=== PATIENT | male | born 1955 | race Caucasian/White ===

== ENCOUNTER 2018-06-26 06:11 | Day surgery (SDC) | payer MEDICARE, OTHER ==
[~2018-06-26] VITALS: Ht 165.1 cm; Wt 57.2 kg
[~2018-06-26 06:11] MED LIST: AMLO5TAB4 PO; BENA20TA65 PO; CLON-379 PO; CLON0.5T14 PO; CNC30T PO; CYAN500T21 PO; DOCU-159 PO; EPOE10003 SC; FOLI-49 PO; FOLI1CAP PO; GABA100C PO; GLYB5TAB3 PO; LABE100T8 PO; MEGE40TA PO; NEPH PO; NIFE60TA60 PO; NIFE90TA21 PO; OMEG1CAP2 PO; PANT40TA3 PO; PARI2VIA IV; PYRI50TA15 PO; SEVE800T7 PO; SIMV40TA3 PO; TRAV4OP25 BOTH EYES
[2018-06-26 07:12] VITALS: Ht 165.1 cm; Wt 57.2 kg
--- NOTE | 2018-06-26 07:32 | PREAC ---
Date/Time of Note Date/Time of Note DATE: 06/26/18 TIME: 07:30 Anesthesia Eval and Record Evaluation Time Pre-Procedure Interview DATE: 06/26/18 TIME: 07:30 Age 62 Sex male NPO: 8 hrs Preoperative diagnosis dyspepsia Planned procedure EGD Past Medical History Past Medical History: Includes Cardio: HTN, CABG Endo: Diabetes Renal: ESRD on dialysis, HD last: (yesterday) Surgery & Anesthesia Issues No known issue Meds Anticoagulation: No Beta Blake within 24 hr: Yes Reason Beta Blake not given: Pt. not on B-Blake Reported Medications Paricalcitol* (Zemplar*) 2 Mcg/Ml Vial, 1 MCG IV DIRECTED, VIAL 1ST, 2ND, AND 3RD SCHED TRMT 04/07/14 Megestrol Acetate* (Megace*) 40 Mg Tab, 40 MG PO DAILY, TAB 04/07/14 Pantoprazole* (Protonix*) 40 Mg Tablet.dr, 40 MG PO DAILY, TAB 04/07/14 Glyburide* (Glyburide*) 5 Mg Tablet, 5 MG PO QAM, TAB 04/07/14 Gabapentin* (Neurontin*) 100 Mg Capsule, 100 MG PO TID, CAP 04/07/14 Cinacalcet* (Sensipar*) 30 Mg Tab, 30 MG PO DAILY, TAB 04/07/14 Simvastatin (Simvastatin) 40 Mg Tablet, 40 MG PO HS, TAB 04/07/14 Docusate Sodium* (Docusate Sodium*) 100 Mg Capsule, 100 MG PO BID, CAP 04/07/14 Folic Acid* (Folic Acid*) 1 Mg Tablet, 1 MG PO DAILY, TAB 04/07/14 [place]-3 Acid Ethyl Esters (Lovaza) 1 Gm Capsule, 1 GM PO BID, CAP 04/07/14 Clonazepam* (Clonazepam*) 0.5 Mg Tablet, 0.5 MG PO NEEDED, TAB 04/07/14 Sevelamer Carbonate* (Renvela*) 800 Mg Tablet, 0.8 GM PO TID, TAB 04/07/14 Travoprost* (Travatan*) 0.004%-2.5 Ml Opht, 1 DROP BOTH EYES HS, EA 04/07/14 Benazepril Hcl* (Lotensin*) 20 Mg Tablet, 20 MG PO DAILY, TAB 04/07/14 Folic Acid/Vitamin B Comp W-C (Nephrocaps Capsule) 1 Mg Capsule, 1 MG PO DAILY 04/07/14 Nifedipine* (Procardia XL*) 60 Mg/Bottle Tab.osm.24, 60 MG PO DAILY, TAB.SA 04/07/14 Epoetin yosvany* (Epogen* (ESRD)) 10,000 Unit/1 Ml Vial, 15899 UNIT SC NEEDED, VIAL 1ST AND 3RD SCHED TRMT OF WEEK 04/07/14 Clonidine Hcl* (Clonidine Hcl*) 0.1 Mg Tab, 0.1 MG PO DAILY NEEDED, TAB 04/07/14 Pyridoxine Hcl (Vitamin B6) 50 Mg Tab, 50 MG PO DAILY, TAB 04/07/14 Multivit/Ca Carb/B Cmplx/Fa* (Sara-Kathi*) 1 Tab Tab, 1 TAB PO DAILY, TAB 04/07/14 Cyanocobalamin* (Vitamin B-12*) 500 Mcg Tablet.sa, 500 MCG PO DAILY, TAB 04/07/14 Amlodipine Besylate* (Norvasc*) 5 Mg Tablet, 5 MG PO DAILY, TAB 04/07/14 Labetalol Hcl* (Normodyne*) 100 Mg Tablet, 30 MG PO DAILY, TAB 04/07/14 Nifedipine* (Adalat CC*) 90 Mg Tablet.sa, 90 MG PO DAILY, TAB.SA 04/07/14 Meds reviewed: Yes Allergies Coded Allergies: No Known Drug Allergy (Verified Allergy, Mild, 06/26/18) Allergies Reviewed: Yes Labs/Studies Labs Reviewed: Reviewed by anesthesiologist test: N/A Studies: ECG (n/a), CXR (n/a) Pre-procedure Exam Airway: Adequate mouth opening Mallampati: Mallampati I Teeth: Abnormal (partial den ture) Lung: Normal Heart: Normal ASA Physical Status ASA physical status: 3 Emergency: None Planned Anesthetic General/MAC: MAC Planned Pain Management Parenteral pain med Pre-operative Attestations Prior to commencing anesthesia and surgery, the patient was re-evaluated, there was verification of: *The patient's identity *The results of appropriate recent lab work and preoperative vital signs *The above evaluation not changing prior to induction *Anesthetic plan, risk benefits, alternative and complications discussed with patient/family; questions answered; patient/family understands, accepts and wishes to proceed. VANESSA BARNES MD Jun 26, 2018 07:32
[2018-06-26] MEDS ORDERED: PROPOFOL 20 ML ONE (07:43)
[2018-06-26] MEDS ORDERED: FENTAnyl 50 MCG/ML VIAL ONE (07:43)
[2018-06-26] MEDS ORDERED: ciclopirox (07:46)
[2018-06-26] MEDS ORDERED: fenofibrate (07:46)
[2018-06-26] MEDS ORDERED: metoclopramide PO (07:46)
[2018-06-26] MEDS ORDERED: TRAVATAN Z (07:46)
[2018-06-26] MEDS ORDERED: omeprazole PO (07:46)
[2018-06-26] MEDS ORDERED: fish oil PO (07:46)
[2018-06-26 07:51] VITALS: BP 153/66; PULSE 59; RESP 13
[2018-06-26 07:55] VITALS: BP 153/66; PULSE 61; RESP 16
[2018-06-26] MEDS ORDERED: hydrALAzine 20 MG INJ IV PRN (08:00)
[2018-06-26] MEDS ORDERED: ONDANSETRON 4 MG INJ IV PRN (08:00)
[2018-06-26] MEDS ORDERED: LABETALOL HCL 20MG INJ IV PRN (08:00)
[2018-06-26 08:53] VITALS: BP 147/67; RESP 24
--- NOTE | 2018-06-26 09:35 | PAC ---
Date/Time of Note Date/Time of Note DATE: 06/26/18 TIME: 09:35 Post-Anesthesia Notes Post-Anesthesia Note Last documented vital signs Vital Signs Date Temp Pulse Resp B/P (MAP) Pulse Ox O2 O2 Flow FiO2 Time Delivery Rate 06/26/18 97.1 59 24 147/67 96 08:53 (93) 06/26/18 97.1 59 Room Air 07:51 Activity: WNL Respiratory function: WNL Cardiovascular function: WNL Mental status: Baseline Pain reasonably controlled: Yes Hydration appropriate: Yes Nausea/Vomiting absent: No VANESSA BARNES MD Jun 26, 2018 09:35
== END 2018-06-26 09:54 | disposition home or self-care (01) ==
LOC: GIL 06:11
PROVIDERS: ATTEND Internal Medicine Gastroenterology
DX: K29.00 Acute gastritis without bleeding (principal); K20.8 Other esophagitis; I12.0 Hypertensive chronic kidney disease with stage 5 chronic kidney disease or end stage renal disease; N18.6 End stage renal disease; Z99.2 Dependence on renal dialysis; E11.9 Type 2 diabetes mellitus without complications
CPT/HCPCS: 43239; 82947; 84132; 88305; 88312; J3010